=== PATIENT | female | born 1950 | race Caucasian/White ===

== ENCOUNTER 2016-10-17 10:17 | Outpatient (CLI) | payer MEDICARE | END 2016-10-17 13:24 | LOC: D.MAMMO 10:17 | DX: Z12.31 Encounter for screening mammogram for malignant neoplasm of breast (principal) ==

== ENCOUNTER → 2016-12-12 14:01 | Outpatient (CLI) | payer MEDICARE, BC | END | disposition home or self-care (01) | LOC: D.MAMMO 11-24 09:00 | DX: R92.2 Inconclusive mammogram (principal) ==

== ENCOUNTER → 2018-05-01 17:00 | Outpatient (CLI) | payer MEDICARE, BC | END | disposition home or self-care (01) | LOC: D.MAMMO 13:00 | DX: Z12.31 Encounter for screening mammogram for malignant neoplasm of breast (principal) ==

== ENCOUNTER 2019-01-24 06:02 | Emergency (ER) | payer MEDICARE, BC ==
[~2019-01-24] VITALS: Ht 167.6 cm; Wt 59.1 kg
[2019-01-24 06:10] VITALS: Ht 167.6 cm; Wt 59.1 kg
[2019-01-24 06:46] VITALS: BP 134/90
== END 2019-01-24 06:46 | disposition home or self-care (01) ==
LOC: D.ER 06:02
DX: S27.818A Other injury of esophagus (thoracic part), initial encounter (principal); T18.128A Food in esophagus causing other injury, initial encounter; S10.11XA Abrasion of throat, initial encounter; T17.228A Food in pharynx causing other injury, initial encounter